=== PATIENT | female | born 1990 | race Caucasian/White ===

== ENCOUNTER → 2017-11-07 | Outpatient (CLI) | payer OTHER ==
--- NOTE | 2017-11-07 16:35 | DIAGNOSTIC IMAGING REPORT ---
L VENOUS DOPP LOWER EXT UNILAT HISTORY: 27 years-old Female MASS ON LEFT LE palpable abnormality of the left lower extremity with swelling COMPARISON: None available TECHNIQUE: Multiple real-time sonographic images of the left lower extremity deep venous structures were obtained assessing grayscale appearance, color and spectral flow FINDINGS: There is normal compressibility, flow, phasicity and augmentation of the left lower extremity deep venous structures. No focal fluid collection or definite mass seen within the left lower extremity. IMPRESSION: No sonographic evidence of deep venous thrombosis. The above report was generated using voice recognition software. It may contain grammatical, syntax or spelling errors. Electronically signed by: Dameon Lyle M.D. 11/07/2017 4:34 PM Dictated Date/Time: 11/07/2017 4:33 PM
== END | disposition home or self-care (01) ==
LOC: C.ULTR 16:07
PROVIDERS: ATTEND Physician Assistant
DX: R22.40 Localized swelling, mass and lump, unspecified lower limb (principal)

== ENCOUNTER → 2018-02-15 | Outpatient (CLI) | payer OTHER ==
[2018-02-15 14:04] LABS: BASO % 0.2 %; BASO ABS # 0.01 K/uL (0-0.2); EOS % 3.5 %; EOS ABS # 0.17 K/uL (0-0.5); HEMATOCRIT 39.1 % (37-47); LYMPH % 45.2 %; LYMPH ABS # 2.21 K/uL (1.2-3.4); MEAN CELL VOLUME 91.1 fL (80-100); MEAN CORPUSCULAR HEMOGLOBIN 30.3 pg (25-34); MEAN CORPUSCULAR HGB CONC 33.2 g/dl (32-36); MEAN PLATELET VOLUME 12.1 fL (7.4-10.4); MONO % 9.4 %; MONO ABS # 0.46 K/uL (0.11-0.59); NEUT % 41.7 %; NEUT ABS # 2.04 K/uL (1.4-6.5); PLATELET COUNT 185 K/uL (130-400); RED CELL DISTRIBUTION WIDTH CV 13.4 % (11.5-14.5); RED CELL DISTRIBUTION WIDTH SD 43.8 fL (36.4-46.3); WHITE BLOOD COUNT 4.89 K/uL (4.8-10.8)
[2018-02-15 14:21] LABS: ALBUMIN 3.3 gm/dl (3.4-5.0); ALKALINE PHOSPHATASE 52 U/L (45-117); ALT/SGPT 23 U/L (12-78); AST/SGOT 20 U/L (15-37); BLOOD UREA NITROGEN 14 mg/dl (7-18); CALCIUM 8.7 mg/dl (8.5-10.1); CARBON DIOXIDE 23 mmol/L (21-32); CREATININE 0.57 mg/dl (0.60-1.20); GLUCOSE 82 mg/dl (70-99); POTASSIUM 4.2 mmol/L (3.5-5.1); SODIUM 138 mmol/L (136-145)
[2018-02-15 15:21] LABS: HEP C IGG 13 YRS+OLDER_RFLX PRELIM POS (NEG)
[2018-02-21 18:26] LABS: HEPATITIS C RNA TMA QUAL Not detected
== END | disposition home or self-care (01) ==
LOC: C.LABPBG 08:21
PROVIDERS: ATTEND Family Medicine
DX: R53.83 Other fatigue (principal); Z87.898 Personal history of other specified conditions

== ENCOUNTER 2018-03-01 15:51 | Emergency (ER) | payer OTHER ==
[~2018-03-01] VITALS: Ht 170.2 cm; Wt 80.0 kg
[2018-03-01 15:53] VITALS: TEMP 36.4; Ht 170.2 cm; Wt 80.0 kg
[2018-03-01] MEDS ORDERED: KETOROLAC TROMETHAMINE 15 MG/ML VIAL IV STA (16:12)
[2018-03-01] MEDS ORDERED: ONDANSETRON INJ 2 MG/ML 2 ML VIAL IV STA (16:12)
[2018-03-01] MEDS ORDERED: GI COCKTAIL PO STA (16:12)
[2018-03-01] MEDS ORDERED: SODIUM CHLORIDE 0.9% 1000ML 1,000 ML IV STA (16:12)
--- NOTE | 2018-03-01 16:18 | EMERGENCY ROOM VISIT NOTE ---
History First contact with patient: 16:01 Chief Complaint: ABDOMINAL PAIN Stated Complaint: SEVERE AB PAIN History of Present Illness The patient is a 27 year old female who presents to the Emergency Room with complaints of severe abdominal pain which began when she woke up this morning. The patient reports that she woke up around 8 AM. She initially thought she had abdominal cramping, but states that the pain has worsened. She states the pain is diffuse, but mostly across her upper and mid abdomen. She has developed nausea recently but has not vomited. She feels hot and cold but denies fevers. She has been able to eat and drink normally. She has not taken any medication for pain. She describes her pain as a burning sensation and rates the discomfort a 10/10. Her pain is worsened when she is moving or walking around. She denies any history of similar symptoms. She has a history of a but denies any other history of abdominal issues or surgeries. She is currently treated for hypothyroidism and swelling in her extremities. She denies urinary symptoms, changes in bowel movements, chest pain, shortness of breath or fevers. She does take Suboxone daily but has not taken her dose today. She denies any recent drug or alcohol use. Review of Systems A complete 10 point review of systems was reviewed with the patient with pertinent positives and negatives as per history of present illness. All else were negative. Past Medical/Surgical History Medical Problems: (1) Drug addiction (2) Hypothyroidism Social History Smoking Status: Current Every Day Smoker Housing Status: lives with family Occupation Status: employed Current/Historical Medications Scheduled Furosemide (Furosemide), 1 TAB PO DAILY Omeprazole (Prilosec), 40 MG PO DAILY Thyroid ([place] Thyroid), 1 TAB PO DAILY Miscellaneous Medications Buprenorphine Hcl-Naloxone Hcl (Suboxone 2-0.5 Mg) Physical Exam Vital Signs Date Time Temp Pulse Resp B/P (MAP) Pulse Ox O2 Delivery O2 Flow Rate FiO2 03/01/18 21:05 69 18 135/87 97 03/01/18 19:49 63 18 108/62 99 Room Air 03/01/18 17:53 58 18 113/68 99 Room Air 03/01/18 15:53 36.4 70 17 147/97 99 Room Air Physical Exam VITALS: Vitals are noted on the nurse's note and reviewed by myself. Vital signs stable. GENERAL: This is a 27-year-old female, lying supine in bed, appears anxious and in pain, well-developed well-nourished. SKIN: The skin was without rashes. EARS: External auditory canals clear, tympanic membranes pearly hunt without erythema or effusion bilaterally. EYES: Pupils equal round and reactive to light and accommodation. MOUTH: Mucous membranes moist. Tonsils are not enlarged. Pharynx without erythema or exudate. HEART: Regular rate and rhythm without murmurs gallops or rubs. LUNGS: Clear to auscultation bilaterally without wheezes, rales or rhonchi. ABDOMEN: Positive bowel sounds x 4. Soft, nondistended and nontender to palpation. No palpable masses or organomegaly. Patient does report increased nausea with palpation of her abdomen. NEURO: Patient was alert and oriented to person place and time. Medical Decision & Procedures ER Provider Diagnostic Interpretation: ABDOMEN 2VIEW W/PA CHEST RTN CLINICAL HISTORY: Upper abdominal pain COMPARISON STUDY: No previous studies for comparison. FINDINGS: The erect chest reveals no free air. There is no focal pulmonary consolidation. Erect and supine views of the abdomen reveal scattered stool the colon. There are no transition zones indicate bowel obstruction. There is no pathologic bowel dilatation. Pelvic basin calcifications likely represent phleboliths. IMPRESSION: No evidence of bowel obstruction. No evidence of free air. Laboratory Results 03/01/18 19:19 Red Blood Count 4.24, Mean Corpuscular Volume 87.0, Mean Corpuscular Hemoglobin 30.2, Mean Corpuscular Hemoglobin Concent 34.7, Mean Platelet Volume 12.1, Neutrophils (%) (Auto) 66.3, Lymphocytes (%) (Auto) 24.7, Monocytes (%) (Auto) 7.1, Eosinophils (%) (Auto) 1.1, Basophils (%) (Auto) 0.4, Neutrophils # (Auto) 3.62, Lymphocytes # (Auto) 1.35, Monocytes # (Auto) 0.39, Eosinophils # (Auto) 0.06, Basophils # (Auto) 0.02 03/01/18 19:33 Test 03/01/18 00:00 03/01/18 19:19 03/01/18 19:33 Urine Color YELLOW Urine Appearance CLEAR (CLEAR) Urine pH 8.5 (4.5-7.5) Urine Specific [place] 1.020 (1.000-1.030) Urine Protein NEG (NEG) Urine Glucose (UA) NEG (NEG) Urine Ketones NEG (NEG) Urine Occult Blood NEG (NEG) Urine Nitrite NEG (NEG) Urine Bilirubin NEG (NEG) Urine Urobilinogen NEG (NEG) Urine Leukocyte Esterase TRACE (NEG) Urine WBC (Auto) 1-5 /hpf (0-5) Urine RBC (Auto) 0-4 /hpf (0-4) Urine Hyaline Casts (Auto) 1-5 /lpf (0-5) Urine Epithelial Cells (Auto) >30 /lpf (0-5) Urine Bacteria (Auto) 1+ (NEG) Urine Test NEG (NEG) White Blood Count 5.46 K/uL (4.8-10.8) Red Blood Count 4.24 M/uL (4.2-5.4) Hemoglobin 12.8 g/dL (12.0-16.0) Hematocrit 36.9 % (37-47) Mean Corpuscular Volume 87.0 fL (80-100) Mean Corpuscular Hemoglobin 30.2 pg (25-34) Mean Corpuscular Hemoglobin Concent 34.7 g/dl (32-36) Platelet Count 184 K/uL (130-400) Mean Platelet Volume 12.1 fL (7.4-10.4) Neutrophils (%) (Auto) 66.3 % Lymphocytes (%) (Auto) 24.7 % Monocytes (%) (Auto) 7.1 % Eosinophils (%) (Auto) 1.1 % Basophils (%) (Auto) 0.4 % Neutrophils # (Auto) 3.62 K/uL (1.4-6.5) Lymphocytes # (Auto) 1.35 K/uL (1.2-3.4) Monocytes # (Auto) 0.39 K/uL (0.11-0.59) Eosinophils # (Auto) 0.06 K/uL (0-0.5) Basophils # (Auto) 0.02 K/uL (0-0.2) RDW Standard Deviation 41.3 fL (36.4-46.3) RDW Coefficient of Variation 12.9 % (11.5-14.5) Immature Granulocyte % (Auto) 0.4 % Immature Granulocyte # (Auto) 0.02 K/uL (0.00-0.02) Anion Gap 5.0 mmol/L (3-11) Est Creatinine Clear Calc Drug Dose 137.3 ml/min Estimated GFR () 139.6 Estimated GFR (Non- 120.5 BUN/Creatinine Ratio 15.4 (10-20) Calcium Level 8.4 mg/dl (8.5-10.1) Total Bilirubin 0.2 mg/dl (0.2-1) Direct Bilirubin 0.1 mg/dl (0-0.2) Aspartate Amino Transf (AST/SGOT) 24 U/L (15-37) Alanine Aminotransferase (ALT/SGPT) 33 U/L (12-78) Alkaline Phosphatase 59 U/L (45-117) Total Protein 7.3 gm/dl (6.4-8.2) Albumin 3.3 gm/dl (3.4-5.0) Lipase 128 U/L (73-393) Medications Administered Medications (Trade) Dose Ordered Sig/Catia Route Start Time Stop Time Status Last Admin Dose Admin Sodium Chloride 1,000 ml @ 999 mls/hr Q1H1M STAT IV 03/01/18 16:12 03/01/18 17:12 DC 03/01/18 17:44 999 MLS/HR Ondansetron HCl (Zofran Inj) 4 mg NOW STAT IV 03/01/18 16:12 03/01/18 16:15 DC 03/01/18 17:44 4 MG Ketorolac Tromethamine (Toradol Inj) 15 mg NOW STAT IV 03/01/18 16:12 03/01/18 16:15 DC 03/01/18 17:44 15 MG Lidocaine HCl (Viscous Lidocaine 2% Soln) 20 ml STK-MED ONCE .ROUTE 03/01/18 17:34 03/01/18 17:35 DC 03/01/18 17:44 20 ML Al Hydroxide/Mg Hydroxide (Maalox Susp) 30 ml STK-MED ONCE .ROUTE 03/01/18 17:34 03/01/18 17:35 DC 03/01/18 17:44 30 ML Ranitidine HCl (zANTac TAB) 150 mg ONE STAT PO 03/01/18 20:54 03/01/18 20:55 DC 03/01/18 21:03 150 MG Medical Decision Differential diagnosis includes gastritis, pancreatitis, cholecystitis, gastroenteritis, colitis, appendicitis, kidney stone, UTI, among others. The patient is a 27-year-old female who presents today complaining of abdominal pain. Patient's exam is unremarkable and there is no abdominal tenderness on exam. Labs revealed no leukocytosis, anemia or concerning electrolyte abnormalities. LFTs and kidney function within normal limits. Urinalysis was not suggestive of infection. Urine was negative. Lipase was not elevated. Abdominal series was performed and was unremarkable. Patient was treated as above with some improvement of her pain. I discussed options of care with the patient including performing further testing versus discharge and close follow-up. The patient will be discharged at this time. She will follow- up with her primary care provider for further evaluation. She will be started on a PPI. Based on the patient's presentation and work up, I feel the patient is stable for outpatient treatment. The patient was educated to return to the emergency department for any worsening of their current condition or new/concerning symptoms. She will follow up with her PCP. Medication Reconcilliation Current Medication List: was personally reviewed by me Blood Pressure Screening Patient's blood pressure: Normal blood pressure Impression Primary Impression: Generalized abdominal pain Departure Information Dispostion Home / Self-Care Condition GOOD Prescriptions Omeprazole (PRILOSEC) 40 Mg Cap 40 MG PO DAILY for 14 Days, #14 CAP Prov: Dinorah Michelle ., LISS 03/01/18 Referrals Janice Fields DO (PCP) Patient Instructions [facility] Additional Instructions You have been treated in the Emergency Department for your Abdominal Pain. Laboratory results and imaging studies have ruled out any emergent causes for your abdominal pain which would warrant admission or surgery. Omeprazole as prescribed. You may take Zantac rzwo-hun-wlhcnwn, 150 mg nightly for the next 1 week. For pain control, you can use the following hjcz-arz-[id number] medicines (if >12 yo): - Regular strength (325mg/tab) Tylenol (acetaminophen) 2 tabs every 4-6 hours as needed. Do not exceed 12 tablets in a 24 hour period. Avoid taking more than 4 grams (4000 mg) of Tylenol per day. This includes any other sources of acetaminophen you may take on a regular basis. Drink plenty of water and stay well hydrated. As with any trip to the Emergency Department, you should follow-up with your Primary Care Provider from today's visit. Keep a very bland diet, including breaths, toast, crackers and other bland foods. Make sure to drink plenty of fluids. Return to the emergency department if your symptoms persist despite treatment plan outlined above or if the following symptoms occur: Worsening pain, pain that localizes to one location, vomiting, fevers or other new/concerning symptoms.
[2018-03-01] MEDS ORDERED: LSX20 PO (16:54)
[2018-03-01] MEDS ORDERED: THYR90TA PO (16:54)
[2018-03-01] MEDS ORDERED: BUPR1SUB22 (16:54)
[2018-03-01] MEDS ORDERED: [UNRECOGNIZED DRUG - CODE] (16:54)
[2018-03-01] MEDS ORDERED: LIDOCAINE HCL 2% VISC SOLN 20 ML UDC ONE (17:34)
[2018-03-01] MEDS ORDERED: ALUMINUM/MAGNESIUM SUSP 30 ML UDC ONE (17:34)
--- NOTE | 2018-03-01 18:32 | DIAGNOSTIC IMAGING REPORT ---
ABDOMEN 2VIEW W/PA CHEST RTN CLINICAL HISTORY: Upper abdominal pain COMPARISON STUDY: No previous studies for comparison. FINDINGS: The erect chest reveals no free air. There is no focal pulmonary consolidation. Erect and supine views of the abdomen reveal scattered stool the colon. There are no transition zones indicate bowel obstruction. There is no pathologic bowel dilatation. Pelvic basin calcifications likely represent phleboliths. IMPRESSION: No evidence of bowel obstruction. No evidence of free air. Electronically signed by: Stephon Aleman M.D. 03/01/2018 6:30 PM Dictated Date/Time: 03/01/2018 6:29 PM
[2018-03-01 20:17] LABS: BASO % 0.4 %; BASO ABS # 0.02 K/uL (0-0.2); EOS % 1.1 %; EOS ABS # 0.06 K/uL (0-0.5); HEMATOCRIT 36.9 % (37-47); HEMOGLOBIN 12.8 g/dL (12.0-16.0); IG# 0.02 K/uL (0.00-0.02); LYMPH % 24.7 %; LYMPH ABS # 1.35 K/uL (1.2-3.4); MEAN CORPUSCULAR HEMOGLOBIN 30.2 pg (25-34); MEAN CORPUSCULAR HGB CONC 34.7 g/dl (32-36); MEAN PLATELET VOLUME 12.1 fL (7.4-10.4); MONO % 7.1 %; MONO ABS # 0.39 K/uL (0.11-0.59); NEUT % 66.3 %; NEUT ABS # 3.62 K/uL (1.4-6.5); PLATELET COUNT 184 K/uL (130-400); RED CELL DISTRIBUTION WIDTH CV 12.9 % (11.5-14.5); RED CELL DISTRIBUTION WIDTH SD 41.3 fL (36.4-46.3); WHITE BLOOD COUNT 5.46 K/uL (4.8-10.8)
[2018-03-01 20:25] LABS: ALBUMIN 3.3 gm/dl (3.4-5.0); CALCIUM 8.4 mg/dl (8.5-10.1); CREATININE 0.67 mg/dl (0.60-1.20); POTASSIUM 3.9 mmol/L (3.5-5.1); TOTAL PROTEIN 7.3 gm/dl (6.4-8.2)
[2018-03-01] MEDS ORDERED: RANITIDINE HCL 150 MG TAB PO STA (20:54)
[2018-03-01] MEDS ORDERED: OMEP40CA41 PO (20:56)
[2018-03-01 21:05] VITALS: BP 135/87; PULSE 69; O2SAT 97
== END 2018-03-01 21:05 | disposition home or self-care (01) ==
LOC: C.EDB 15:53 → C.EDC 21:05
DX: R10.84 Generalized abdominal pain (principal); R11.0 Nausea; E03.9 Hypothyroidism, unspecified; F17.200 Nicotine dependence, unspecified, uncomplicated; Z79.891 Long term (current) use of opiate analgesic; Z79.899 Other long term (current) drug therapy

== ENCOUNTER 2019-03-19 21:11 | Inpatient (IN) ==
--- NOTE | 2019-03-19 22:48 | XRay Report ---
XR chest 1V portable CLINICAL HISTORY: Sepsis COMPARISON STUDY: 03/01/2018 FINDINGS: The cardiac and mediastinal contours are normal. There is no evidence of focal pulmonary co nsolidation. There is no evidence of failure. No pleural effusions are visualized.[ IMPRESSION: No active disease in the chest. Electronically signed by: Stephon Aleman M.D. 03/19/2019 10:46 PM
--- NOTE | 2019-03-19 22:48 | XRay Report ---
XR foot RT min 3V routine CLINICAL HISTORY: Right foot pain COMPARISON: None. DISCUSSION: No fractures or dislocations are visualized. There is dorsal soft tissue swelling. IMPRESSION: 1. Soft tissue swelling. 2. No fractures identified. No evidence of erosive disease Electronically signed by: Stephon Aleman M.D. 03/19/2019 10:46 PM
--- NOTE | 2019-03-19 22:48 | XRay Report ---
XR foot LT min 3V routine CLINICAL HISTORY: Left foot pain COMPARISON: None. DISCUSSION: No fractures or dislocations are visualized. There are no erosive or destructive changes. There is soft tissue swelling. IMPRESSION: 1. Soft tissue edema. No fractures identified. No evidence of erosive disease. Electronically signed by: Stephon Aleman M.D. 03/19/2019 10:47 PM
[2019-03-19 23:25] LABS: Basophils # (auto) 0.01 K/uL (0-0.2); Basophils % (auto) 0.1 %; Eosinophils # (auto) 0.16 K/uL (0-0.5); Hemoglobin 10.7 g/dL (12.0-16.0); Immature Granulocytes # (auto) 0.04 K/uL (0.00-0.02); Immature Granulocytes % (auto) 0.5 %; Lymphocytes # (auto) 1.65 K/uL (1.2-3.4); Lymphocytes % (auto) 20.3 %; Mean Corpuscular Hgb Conc 34.5 g/dL (32-36); Mean Corpuscular Volume 90.9 fL (80-100); Mean Platelet Volume 10.3 fL (7.4-10.4); Monocytes # (auto) 0.68 K/uL (0.11-0.59); Monocytes % (auto) 8.4 %; Neutrophils % (auto) 68.7 %; Platelet Count 214 K/uL (130-400); RDW Coefficient of Variation 13.6 % (11.5-14.5); Red Blood Count 3.41 M/uL (4.2-5.4); White Blood Count 8.14 K/uL (4.8-10.8)
[2019-03-19 23:36] LABS: INR 0.9 (0.9-1.1); Partial Thromboplastin Time 26.2 Seconds (21.0-31.0); Prothrombin Time 9.7 Seconds (9.0-12.0)
[2019-03-19] MEDS ORDERED: LORazepam 2 MG/ML VIAL (IM USE) IM STA (23:40)
[2019-03-19 23:41] LABS: Calcium 8.5 mg/dl (8.5-10.1); Chloride 106 mmol/L (98-107); Potassium 3.7 mmol/L (3.5-5.1); Sodium 140 mmol/L (136-145)
[2019-03-19] MEDS ORDERED: KETAMINE HCL INJ 50 MG/ML 10 ML VIAL IV STA (23:42)
[2019-03-19] MEDS ORDERED: LORazepam 2 MG/4 ML VIAL IV STA (23:43)
[2019-03-19 23:44] LABS: Alanine Aminotransferase 15 U/L (12-78); Albumin Level 2.8 gm/dl (3.4-5.0); Aspartate Aminotransferase 19 U/L (15-37); BUN Creatinine Ratio 21.6 (10-20); Blood Urea Nitrogen 13 mg/dl (7-18); Carbon Dioxide 28 mmol/L (21-32); Creatinine Clr Calc Pharmacy 158.8 ml/min; Est GFR (African American) 143.8; Glucose 83 mg/dl (70-99)
[2019-03-19 23:50] LABS: Albumin Globulin Ratio 0.7 (0.9-2); Alkaline Phosphatase 72 U/L (45-117); Bilirubin,Total 0.4 mg/dl (0.2-1); Creatine Kinase 385 U/L (26-192); Globulin 4.1 gm/dl (2.5-4.0); Total Protein 6.9 gm/dl (6.4-8.2)
[2019-03-19] MEDS ORDERED: AZTREONAM 2,000 MG in DEXTROSE 5% 100 ML IV STA (23:54)
[2019-03-20] MEDS ORDERED: DiphenhydrAMINE HCL 50 MG/ML VIAL IV STA (00:07)
[2019-03-20] MEDS ORDERED: DEXTROSE 5% IV ONE (00:15)
[2019-03-20] MEDS ORDERED: AMPHOTERICIN B IV ONE (00:15)
--- NOTE | 2019-03-20 00:39 | History & Physical Report ---
Date of Service March 20, 2019 Assessment & Plan (1) Fungemia: Terrance is a 28 year old female who is currently 26 weeks , with a past medical history including an MRSA infection of the foot, IV drug abuse, psychiatric disorders and hypothyroidism who presented to the emergency de partment due to positive blood cultures. ED course: 2 g IV aztreonam, 25 mg IV amphotericin B Fungemia/Bacteremia -admit to med/surg -hemodynamically stable, afebrile, no leukocytosis -Per review of the chart, patient was seen in the ER on 03/13 for leg cellulitis and discharged with clindamycin. She had blood cultures drawn at that time, which returned positive for yeast and gram-negative bacilli. Of note, her wound culture from her right foot grew MRSA -This was discussed with Dr. Finn with infectious diseases who recommended treatment for her bacteremia/fungemia -continue aztreonam 2g IV q8h and amphotericin B 25mg IV q24h -repeat blood cultures drawn in ED -unsure of cause of bacteremia/fungemia as no focal signs of infection apart from leg cellulitis which grew MRSA -> UA clean, CXR w/out evidence of infection, no lines present, pt denies recent IV drug use Bilateral lower extremity edema/Cellulitis w/MRSA positive wound -awaiting results of b/l lower extremity dopplers, however they were negative on 03/13 -Bilateral foot x-ray show soft tissue edema, with no evidence of erosive disease -continue p.o clindamycin for MRSA +ve R foot ulcer - this was started on 03/13 -26 weeks -follows with Dr. 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 History of IV drug abuse -continue home buprenorphine Mood disorder/bipolar disease/depression/anxiety -Patient has been off all of her psych medications due to -Consider inpatient psychiatry consult versus outpatient close psychiatry follow-up CODE STATUS: Full DVT Prophylaxis: Lovenox 40mg SQ daily Disposition: admit to med/surg (2) Bacteremia: (3) : (4) Bilateral edema of lower extremity: (5) Ollie's thyroiditis: (6) History of intravenous drug abuse: History of Present Illness Chief Complaint: Bacteremia, Fungemia Primary Care Provider: Janice Fields DO Terrance is a 28 year old female who is currently 26 weeks , with a past medical history including an MRSA infection of the foot, IV drug abuse, psychiatric disorders and hypothyroidism who presented to the emergency department due to positive blood cultures. Her history is largely supplied by her mother, who states that she had noticed a right foot wound last week. She was seen at [place] urgent [facility] several times for this. She was initially treated with Keflex for a presumed cellulitis. Due to the fact that this was not improving, she presented to [facility] on 03/13 for the same. She was placed on clindamycin to cover a MRSA infection. Her wound culture did grow MRSA. Blood cultures were drawn at this time, and 1/2 grew dulce maria and gram negative bacilli. She was subsequently called back to the hospital for IV treatment. Terrance denies fever, chills, nausea, vomiting, abdominal pain, cough, or urinary symptoms. She states that other than her b/l legs hurting, she has been well. She does endorse a right palmar laceration that occurred earlier today. She states she accidentally cut herself with a knife, and then bandaged the area. Terrance has a history of IV drug abuse, but states that she has not used any drugs recently. Her mother notes she recently had a negative drug screen. Terrance states she is currently on buprenorphine. Terrance's mother expresses concerns regarding her mental health. She states she was on several medications for her mood, however these were all discontinued when she became , and her mood has subsequently become a problem. She reports Terrance is not sleeping at nights, and has been exhibiting mood swings. PMHx: Hypothyroidism, mood disorder, history of IV drug abuse PSHx: Prior section Meds: Aspirin, clindamycin, Lasix, hydroxyprogesterone caproate, levothyroxine Allergies: NKDA SHx: Smokes <1/2 pack per day. No alcohol or recent recreational drug use. Allergies Allergy/AdvReac Type Severity Reaction Status Date / Time No Known Allergies Allergy Unverified 03/19/19 23:37 Home Medications Home Medications Medication Instructions Recorded Confirmed Type furosemide 20 mg tablet 20 mg PO DAILY #90 tab 01/16/19 03/19/19 Rx buprenorphine HCl 8 mg SUBLINGUAL DIRECTED 03/14/19 03/19/19 History clindamycin HCl 450 mg PO TID 7 Days #63 cap 03/14/19 03/19/19 Rx hydroxyprogesterone caproate 250 mg IM WK 03/14/19 03/19/19 History levothyroxine 150 mcg tablet 150 mcg PO DAILY #60 tab 03/18/19 03/19/19 History Past Med/Surg History Medical History Ollie's thyroiditis (Acute) Hypothyroidism (acquired) (Acute) Encounter for routine gynecological examination with Papanicolaou smear of cervix Surgical History Previous section Family History Brother Anxiety Family history of depression Drug abuse Gall bladder disease Grandmother No problems noted. Grandmother (Paternal) Diabetes Hyperthyroidism Grandmother (Paternal) Myocardial infarction Grandfather (Maternal) Myocardial infarction Social History Preferred Language: Georgian Communication Ability: Impaired Communication Ability Comment: pt appears intoxicated/medicated. slurring words,cant keep eyes open,swayin Sort Worker Required: No Beliefs That Will Affect Care: None marital status: Single Current Living Situation: Homeless current occupational status: employed current occupation: [employer] Other Information That Helps Us Care for You: No Feels Safe at Home: Yes Smoking Status: Current every day smoker Tobacco Type: cigarettes ; Cigarettes Per Day: 1 pack ; Tobacco Cessation Education Requested by Patient: No Hx Alcohol Use: No Hx Substance Use: Yes substance use type: former substance user and IV drugs Last Used Substance: Unknown Childhood Exposure to Second-Hand Smoke: No Dental Care, Regularly: Yes Physical Activity Frequency: 1-2 Times per Week Review of Systems Constitutional: + insomnia; no fever, no chills, no fatigue and no anorexia Respiratory: no cough, no dyspnea and no wheezing Cardiovascular: no chest pain, no palpitations, no syncope, no edema and no calf pain Gastrointestinal: no abdominal pain, no nausea, no vomiting and no change in bowel habits Genitourinary: no dysuria, no urinary frequency and no urinary urgency Musculoskeletal: no back pain Integumentary: + lesions (on base of right foot) laceration to right palm Psychiatric: + behavioral changes and + abnormal sleep pattern Physical Exam Constitutional: WD/WN, vitals as above + well hydrated and comfortable periods of slurred speech and not responding to questions, then transitions to cooperative, with normal speech periodically upset and tearful Eyes: PERRL, conjunctivae normal, anicteric sclerae ENMT: external ear and nose normal, oropharynx normal Neck: right IJ in place Respiratory: normal respiratory effort, lungs clear to auscultation Cardiovascular: Rate/Rhythm: regular rate and regular rhythm Extremities: + calf tenderness (b/l) Gastrointestinal (Abdomen): gravid, no tenderness Skin: multiple bruises on b/l arms b/l legs with erythema, tenderness and swelling. Ulcer noted to lateral aspect of right palm, with surrounding skin having peeled off superficially right palm with 2cm laceration Neurologic: moves all extremities and awake Results & Data Vital Signs (Past 12 Hours) Vital Signs Temp Pulse Resp BP Pulse Ox 03/19/19 21:30 36.7 C 108 H 18 126/76 97 Supervising Physician Co-Signing Physician Notes Patient was seen and examined by me personally. I reviewed the chart, the orders and discussed the case in detail with Dr. Misbah Espinoza MD. I read this H&P and agree with its contents to entirety. PG Care Time/CCT Total # of Minutes Spent Total Time Spent with Patient: Total time spent is greater than 50% in coordination of care (as documented) at patient's floor/unit and/or counseling patient: Resident Activity Tracking Resident Involvement: Resident Care Provided Care Provided: Adult Hospital Medicine (1) Weeks of gestation: 28 weeks Qualified Code(s): Z3A.28 - 28 weeks gestation of
--- NOTE | 2019-03-20 00:47 | Emergency Department Note ---
Entered by Cat Faria acting as a scribe for Ashok Banks MD History of Present Illness General Chief complaint: Infection Stated complaint: BLOOD INFECTION Time Seen by Provider: 03/19/19 21:59 Source: patient Limitations: no limitations History of Present Illness Onset (ago): day(s) 2 Location: lower extremity (blood infection) Pain Consistency: + other (persistent) Maximum Pain Intensity: 7 Quality: + other (blood infection) Relieved By: + none Associated symptoms: + other (bilateral foot pain) The patient is a 28 year old female who presents to the Emergency Room with complaints of persistent blood infection that began two weeks ago. She reports that the symptoms started as a "feeling like a splinter over a calloused area," but the pain and swelling progressed. The patient complains of bilateral foot swelling, erythema, and pain, describing the pain to be "throbbing, aching, and jabbing." She notes that she has been taking Clindamycin for 2-3 days as prescribed. The patient notes that no treatments have provided any relief. The patient notes that she is 27 weeks into her second . Home Medications Home Medications Medication Instructions Recorded Confirmed Type furosemide 20 mg tablet 20 mg PO DAILY #90 tab 01/16/19 03/19/19 Rx buprenorphine HCl 8 mg SUBLINGUAL DIRECTED 03/14/19 03/19/19 History hydroxyprogesterone caproate 250 mg IM WK 03/14/19 03/19/19 History levothyroxine 150 mcg tablet 150 mcg PO DAILY #60 tab 03/18/19 03/19/19 History Allergies Allergy/AdvReac Type Severity Reaction Status Date / Time No Known Allergies Allergy Unverified 03/19/19 23:37 Past Med/Surg History Medical History Hepatitis C antibody positive in blood (Chronic) Ollie's thyroiditis (Acute) Hypothyroidism (acquired) (Acute) Encounter for routine gynecological examination with Papanicolaou smear of cervix Surgical History Previous section Family History Brother Anxiety Family history of depression Drug abuse Gall bladder disease Grandmother No problems noted. 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 and A total of 10 systems reviewed and were otherwise negative Physical Exam Vital Signs Vital Signs - 24 hr 03/19/19 21:30 Temperature 36.7 C Temperature Source Oral Sepsis Recent Fever Within 48 Hours No Sepsis New/Unexplained Change in Mental Status No Sepsis Action Taken by Nursing No Action Required Pulse Rate 108 H Respiratory Rate 18 Respiratory Effort / Characteristics Non-Labored Spontaneous Respiratory Depth Normal Respiratory Pattern Regular Blood Pressure 126/76 Blood Pressure Mean 92 Blood Pressure Position Sitting Pulse Oximetry 97 Oxygen Delivery Method Room Air GENERAL: Awake, alert, well-appearing, in no acute distress HENT: Normocephalic, atraumatic. Oropharynx unremarkable. EYES: Normal conjunctiva. Sclera non-icteric. NECK: Supple. No nuchal rigidity. FROM. No JVD. RESPIRATORY: Clear to auscultation. CARDIAC: Regular rate, normal rhythm. Extremities warm and well perfused. Pulses equal. ABDOMEN: Soft, non-distended. No tenderness to palpation. No rebound or guarding. No masses. RECTAL: Deferred. MUSCULOSKELETAL: Chest examination reveals no tenderness. The back is symmetrical on inspection without obvious abnormality. There is no CVA tenderness to palpation. No joint edema. LOWER EXTREMITIES: Calves are equal size bilaterally and non-tender. Areas of open wounds on her feet. Appears to be cellulitis bilaterally in the legs. NEURO: Normal sensorium. No sensory or motor deficits noted. SKIN: No rash or jaundice noted. Bruises up and down her arms. Procedures Free Text Procedures Central Venous Catheter Indication: Access Catheter type: Arrow Triple Lumen Location: Right IJ Verbal consent was obtained after the risks and benefits were explained, inclu ding but not limited to pneumothorax, hemothorax, vessel injury, bleeding, scarring, infection, pain, and bone/joint/nerve damage. At this time, the risks of the procedure are less than the risks of NOT performing the procedure. A time out was taken and the correct patient and site identified. The patient was placed in the supine position and the skin was prepped in the standard fashion with chlorhexidine and full sterile drapes applied. The proper landmarks were identified with ultrasound, anesthetized with 1% lidocaine without epinephrine, and the needle was inserted through the skin in the standard fashion. The needle was carefully advanced into blood vessel lumen under ultrasound guidance. The guidewire was placed uneventfully. The vessel is dilated and the catheter was placed. It was sutured into position. There was good blood return from all ports. I asked several times if the patient wanted to stop the procedure, but she wanted to continue until the line was in place. Post procedure x-ray was normal. Course 2206: The patient was evaluated in room B09. A complete history and physical exam was performed. 2315: I performed the procedure. I asked several times if the patient wanted to stop the procedure, but she wanted to continue until the line was in place. 2340: The patient refused the X-ray of her chest and she threatened to sign out AMA. 2349: I spoke with Dr. Cruz, [facility] hospitalist, about the patients case. He will further evaluate the patient. Administered Medications Discontinued Medications Acetaminophen (Tylenol) 650 mg PO Q4H PRN PRN Reason: pain/fever Stop: 04/19/19 02:39 Last Admin: 03/20/19 08:43 Dose: 650 mg Documented by: [id number] Buprenorphine HCl (Subutex) 8 mg SL BID MALACHI Stop: 04/19/19 08:59 Last Admin: 03/20/19 08:55 Dose: Not Given Documented by: [id number] Buprenorphine HCl (Subutex) Confirm Administered Dose 8 mg .ROUTE .STK-MED ONE Stop: 03/20/19 08:22 Last Admin: 03/20/19 08:43 Dose: 8 mg Documented by: [id number] Buprenorphine HCl (Subutex) Confirm Administered Dose 8 mg .ROUTE .STK-MED ONE Stop: 03/20/19 08:32 Last Admin: 03/20/19 08:55 Dose: Not Given Documented by: [id number] Clindamycin HCl (Cleocin) 450 mg PO TID MALACHI Stop: 03/30/19 08:59 Last Admin: 03/20/19 15:52 Dose: 450 mg Documented by: [id number] Admin: 03/20/19 11:21 Dose: Not Given Documented by: [id number] Diphenhydramine HCl (Benadryl) 50 mg IV NOW STA Stop: 03/20/19 00:08 Last Admin: 03/20/19 02:07 Dose: Not Given Documented by: [id number] Enoxaparin Sodium (Lovenox) 40 mg SQ QAM MALACHI Stop: 04/19/19 08:59 Last Admin: 03/20/19 08:55 Dose: Not Given Documented by: [id number] Haloperidol Lactate (Haldol) 2 mg IM NOW STA Stop: 03/20/19 08:24 Last Admin: 03/20/19 09:55 Dose: Not Given Documented by: [id number] Lorazepam (Ativan) 2 mg in 4 mls @ 4 mls/min IV NOW STA Stop: 03/19/19 23:44 Last Admin: 03/20/19 02:07 Dose: Not Given Documented by: [id number] Aztreonam 2,000 mg/ Dextrose 110 mls @ 110 mls/hr IV NOW STA Stop: 03/20/19 00:53 Last Infusion: 03/20/19 03:19 Dose: 0 mls/hr Documented by: [id number] Admin: 03/20/19 01:17 Dose: 110 mls/hr Documented by: [id number] Amphotericin B 25 mg/ Dextrose 500 mls @ 82 mls/hr IV NOW ONE Stop: 03/20/19 06:20 Last Infusion: 03/20/19 08:13 Dose: 0 mls/hr Documented by: [id number] Admin: 03/20/19 02:07 Dose: 82 mls/hr Documented by: [id number] Aztreonam 2,000 mg/ Dextrose 110 mls @ 100 mls/hr IV Q8H MALACHI Stop: 04/03/19 09:59 Last Infusion: 03/20/19 20:20 Dose: 0 mls/hr Documented by: [id number] Admin: 03/20/19 18:37 Dose: 100 mls/hr Documented by: [id number] Admin: 03/20/19 11:22 Dose: Not Given Documented by: [id number] Lorazepam (Ativan) 2 mg in 4 mls @ 4 mls/min IV Q4H PRN PRN Reason: Agitation Stop: 04/19/19 09:08 Last Admin: 03/20/19 20:00 Dose: 4 mls/min Documented by: [id number] Ketamine HCl (Ketalar Steri-Vial) 45 mg IV NOW STA Stop: 03/19/19 23:43 Last Admin: 03/20/19 02:06 Dose: Not Given Documented by: [id number] Levothyroxine Sodium (Synthroid) 150 mcg PO DAILYBB MALACHI Stop: 04/19/19 06:29 Last Admin: 03/20/19 05:25 Dose: 150 mcg Documented by: [id number] Lidocaine HCl (Buffered Lidocaine 1%) Confirm Administered Dose 20 ml .ROUTE .STK-MED ONE Stop: 03/20/19 01:40 Last Admin: 03/20/19 02:07 Dose: 20 ml Documented by: [id number] Lorazepam (Ativan) 2 mg IM NOW STA Stop: 03/19/19 23:41 Last Admin: 03/20/19 02:06 Dose: Not Given Documented by: [id number] Ondansetron HCl (Zofran Odt) Confirm Administered Dose 4 mg .ROUTE .STK-MED ONE Stop: 03/20/19 08:43 Last Admin: 03/20/19 08:44 Dose: 4 mg Documented by: [id number] Medical Decision Making Differential Diagnosis Etiologies such as cellulitis, abscess, osteomyelitis, MRSA infection, DVT, necrotizing fasciitis, dermatitis, drug eruption, as well as others were entertained. Medical Records Attestation: I reviewed the patient's medical records. Home Medications Current Medication List: was personally reviewed by me Laboratory Data Attestation: I reviewed the patient's lab results. Result diagrams: 03/20/19 17:07 03/20/19 17:07 Lab Results 03/19/19 03/19/19 03/19/19 Range/Units 23:00 23:00 23:00 WBC 8.14 (4.8-10.8) K/uL RBC 3.41 L (4.2-5.4) M/uL Hgb 10.7 L (12.0-16.0) g/dL Hct 31.0 L (37-47) % MCV 90.9 (80-100) fL MCH 31.4 (25-34) pg MCHC 34.5 (32-36) g/dL RDW Std Deviation 45.0 (36.4-46.3) fL RDW Coeff of Star 13.6 (11.5-14.5) % Plt Count 214 (130-400) K/uL MPV 10.3 (7.4-10.4) fL Immature Gran % (Auto) 0.5 % Neut % (Auto) 68.7 % Lymph % (Auto) 20.3 % Hood % (Auto) 8.4 % Eos % (Auto) 2.0 % Baso % (Auto) 0.1 % Immature Gran # (Auto) 0.04 H (0.00-0.02) K/uL Neut # (Auto) 5.60 (1.4-6.5) K/uL Lymph # (Auto) 1.65 (1.2-3.4) K/uL Hood # (Auto) 0.68 H (0.11-0.59) K/uL Eos # (Auto) 0.16 (0-0.5) K/uL Baso # (Auto) 0.01 (0-0.2) K/uL PT 9.7 (9.0-12.0) Seconds INR 0.9 (0.9-1.1) APTT 26.2 (21.0-31.0) Seconds PTT Ratio 1.0 Sodium 140 (136-145) mmol/L Potassium 3.7 (3.5-5.1) mmol/L Chloride 106 (98-107) mmol/L Carbon Dioxide 28 (21-32) mmol/L Anion Gap 6.0 (3-11) BUN 13 (7-18) mg/dl Creatinine 0.60 (0.6-1.2) mg/dl Est Cr Clr Drug Dosing 158.8 ml/min Est GFR ( Amer) 143.8 Est GFR (Non-Af Amer) 124.0 BUN/Creatinine Ratio 21.6 H (10-20) Glucose 83 (70-99) mg/dl Lactate (0.4-2.0) mmol/L Calcium 8.5 (8.5-10.1) mg/dl Total Bilirubin 0.4 (0.2-1) mg/dl AST 19 (15-37) U/L ALT 15 (12-78) U/L Alkaline Phosphatase 72 (45-117) U/L Total Creatine Kinase 385 H (26-192) U/L CK-MB (CK-2) 11.9 H (0.5-3.6) ng/ml CK/CKMB % Calc 3.1 H (0-3.0) Troponin I < 0.015 (0-0.045) ng/ml Total Protein 6.9 (6.4-8.2) gm/dl Albumin 2.8 L (3.4-5.0) gm/dl Globulin 4.1 H (2.5-4.0) gm/dl Albumin/Globulin Ratio 0.7 L (0.9-2) Procalcitonin (0-0.5) ng/ml 03/19/19 03/20/19 Range/Units 23:00 00:16 WBC (4.8-10.8) K/uL RBC (4.2-5.4) M/uL Hgb (12.0-16.0) g/dL Hct (37-47) % MCV (80-100) fL MCH (25-34) pg MCHC (32-36) g/dL RDW Std Deviation (36.4-46.3) fL RDW Coeff of Star (11.5-14.5) % Plt Count (130-400) K/uL MPV (7.4-10.4) fL Immature Gran % (Auto) % Neut % (Auto) % Lymph % (Auto) % Hood % (Auto) % Eos % (Auto) % Baso % (Auto) % Immature Gran # (Auto) (0.00-0.02) K/uL Neut # (Auto) (1.4-6.5) K/uL Lymph # (Auto) (1.2-3.4) K/uL Hood # (Auto) (0.11-0.59) K/uL Eos # (Auto) (0-0.5) K/uL Baso # (Auto) (0-0.2) K/uL PT (9.0-12.0) Seconds INR (0.9-1.1) APTT (21.0-31.0) Seconds PTT Ratio Sodium (136-145) mmol/L Potassium (3.5-5.1) mmol/L Chloride (98-107) mmol/L Carbon Dioxide (21-32) mmol/L Anion Gap (3-11) BUN (7-18) mg/dl Creatinine (0.6-1.2) mg/dl Est Cr Clr Drug Dosing ml/min Est GFR ( Amer) Est GFR (Non-Af Amer) BUN/Creatinine Ratio (10-20) Glucose (70-99) mg/dl Lactate 0.7 (0.4-2.0) mmol/L Calcium (8.5-10.1) mg/dl Total Bilirubin (0.2-1) mg/dl AST (15-37) U/L ALT (12-78) U/L Alkaline Phosphatase (45-117) U/L Total Creatine Kinase (26-192) U/L CK-MB (CK-2) (0.5-3.6) ng/ml CK/CKMB % Calc (0-3.0) Troponin I (0-0.045) ng/ml Total Protein (6.4-8.2) gm/dl Albumin (3.4-5.0) gm/dl Globulin (2.5-4.0) gm/dl Albumin/Globulin Ratio (0.9-2) Procalcitonin < 0.05 (0-0.5) ng/ml Imaging Data Radiologist's Impression: Radiology results as stated below per my review and the radiologist's interpretation: XR foot RT min 3V routine CLINICAL HISTORY: Right foot pain COMPARISON: None. DISCUSSION: No fractures or dislocations are visualized. There is dorsal soft tissue swelling. IMPRESSION: 1. Soft tissue swelling. 2. No fractures identified. No evidence of erosive disease Electronically signed by: Stepohn Aleman M.D. 03/19/2019 10:46 PM XR foot LT min 3V routine CLINICAL HISTORY: Left foot pain COMPARISON: None. DISCUSSION: No fractures or dislocations are visualized. There are no erosive or destructive changes. There is soft tissue swelling. IMPRESSION: 1. Soft tissue edema. No fractures identified. No evidence of erosive disease. Electronically signed by: Stephon Aleman M.D. 03/19/2019 10:47 PM XR chest 1V portable CLINICAL HISTORY: Sepsis COMPARISON STUDY: 03/01/2018 FINDINGS: The cardiac and mediastinal contours are normal. There is no evidence of focal pulmonary consolidation. There is no evidence of failure. No pleural effusions are visualized.[ IMPRESSION: No active disease in the chest. Electronically signed by: Stephon Aleman M.D. 03/19/2019 10:46 PM ECG Data Attestation: I personally reviewed and interpreted this ECG as follows: Blood Pressure Blood Pressure Findings: Normal blood pressure Blood Pressure Disposition: did not require urgent referral MDM Narrative This is a 28-year-old female who presents emergency department after being called in for growing yeast in her blood. The patient is and appears to have cellulitis on her lower extremities. I will note that this patient did not respond to multiple phone calls this week and there was great concern that the patient was not taking care of herself. Patient is brought in by her m other. Due to inability to get IV access I strongly recommended a central line which the patient consented to. Due to the fact that I am worried that this patient is a high risk of elopement,. Central line was placed as above. I did discuss the case with both pharmacy as well as psychiatry. A 302 petitioning statement was filled out and placed on the chart. The patient was started on broad-spectrum antibiotics as well as antifungal medicines. The decision was made with the patient to place the central line in her neck. Her hemoglobin was noted to be 10 in her white blood cell count is 7. She does not have an elevation in her kidney function. Impression & Plan , Fungemia, Bacteremia, Bilateral edema of lower extremity, Cellulitis Critical Care Time Critical Care Time: Yes Total Critical Care Time: 90 I have personally spent 90 minutes of critical care time in the direct management of this patient. This includes bedside care, interpretation of diagnostic studies, and testing, discussion with consultants, patient, and family members, and other required patient management activities. This 90 minutes is in excess of all separately billable procedures. Discharge Plan Visit Data *Final* Discharge Date/Time: 03/20/19 02:21 Chief Complaint: Infection Stated Complaint: BLOOD INFECTION ED Provider: Ashok Banks Discharge Problem: , Fungemia, Bacteremia, Bilateral edema of lower extremity, Cellulitis Patient Disposition: Admitted As Inpatient Condition: Serious Discharge Instructions Interventions: ED Discharge Assessment Last Done: 03/20/19 02:21 The scribe's documentation has been prepared under my direction and personally reviewed by me in its entirety. I confirm that the note above accurately reflects all work, treatment, procedures, and medical decision making performed by me.
[2019-03-20 01:01] LABS: Creatine Kinase MB 11.9 ng/ml (0.5-3.6); Troponin I < 0.015 ng/ml (0-0.045)
[2019-03-20] MEDS ORDERED: XYLOCAINE 1%/SOD BICARB 20 ML VIAL ONE (01:39)
--- NOTE | 2019-03-20 02:04 | Emergency Department Note ---
ED Visit Note I was asked to perform repair of this patient's laceration. Patient states she was using a knife to cut a tire today because she was angry. She states she accidentally slipped and cut her hand. Examination reveals a 3 cm laceration to the lateral aspect of the right hand. There is no active bleeding from the wound. Subcutaneous tissue was seen in the base of the wound, no deep structures noted. No foreign bodies seen in the wound. Verbal consent was obtained to perform the procedure. Using sterile technique the wound was cleaned with Betadine. The area was sterilely draped. 4 ml of 1% buffered lidocaine was used to anesthetize the hand laceration. Once the patient was anesthetized, the wound was copiously irrigated under pressure with sterile saline. The wound was explored and there were no deep structures injured such as tendons, bone, or significant blood vessels. The laceration was repaired using 4 simple interrupted 5-0 nylon sutures with the wound edges being well approximated. The patient tolerated the procedure well. Hemostasis was achieved.
[2019-03-20] MEDS ORDERED: [UNRECOGNIZED DRUG - OTHER] IV SCH (02:30)
[2019-03-20] MEDS ORDERED: ACETAMINOPHEN 325 MG TAB PO PRN (02:40)
[2019-03-20] MEDS ORDERED: LEVOTHYROXINE SODIUM 150 MCG TABLET PO SCH (06:30)
--- NOTE | 2019-03-20 06:49 | XRay Report ---
XR chest 1V portable CLINICAL HISTORY: Central line placement COMPARISON STUDY: Chest radiograph March 19, 2019. FINDINGS: Interval central line placement as noted. The catheter is coiled over the right mediastinum . Exact positioning is difficult to determine on this exam but the catheter tip may be coiled within the SVC or within the azygos vein. There is no pneumothorax or pleural effusion. There is possible mi ld right lower lung airspace opacity. Cardiac size is normal. Mediastinal contours are normal. IMPRESSION: 1. Interval placement of a central line with catheter coiled, projecting over the right mediastinum. Exact positioning difficult to determine but catheter tip may be coiled within the SVC or the azygos vein. Repositioning might be considered. No pneumothorax. 2. Possible mild right lower lung airspace opacity. Electronically signed by: Mk Knox M.D. 03/20/2019 6:48 AM
--- NOTE | 2019-03-20 07:05 | Ultrasound Report ---
ULTRASOUND BILATERAL LOWER EXTREMITY VENOUS CLINICAL HISTORY: Lower extremity swelling. . COMPARISON STUDY: Bilateral lower extremity venous ultrasound dated 03/14/2019. TECHNIQUE: Real-time, grayscale, and color Doppler sonography of the deep veins of the right and left lower extremity was performed from the inguinal crease to the calf. Compression and augmentation wer e utilized. FINDINGS: There is no sonographic evidence of deep venous thrombosis identified in the right or left lower extremity. The common femoral, superficial femoral, and popliteal veins are patent and normally compressible bilaterally. The greater saphenous vein and the profunda femoris vein at the junction w ith the common femoral vein are clear in both legs. The visualized calf veins are patent bilaterally. IMPRESSION: There is no sonographic evidence of deep venous thrombosis identified in the right or lef t lower extremity. Electronically signed by: Kyler Tinoco M.D. 03/20/2019 7:04 AM
[2019-03-20] MEDS ORDERED: BUPRENORPHINE/NALOXONE 8/2 MG TAB SL STA (08:17)
[2019-03-20] MEDS ORDERED: BUPRENORPHINE HCL 8 MG SUBL ONE ×2 (08:21→08:31)
[2019-03-20] MEDS ORDERED: HALOPERIDOL LACTATE 5 MG/ML 1 ML VIAL IM STA (08:23)
[2019-03-20] MEDS ORDERED: ONDANSETRON 4 MG TAB PO PRN (08:37)
[2019-03-20] MEDS ORDERED: ONDANSETRON 4 MG OD TAB ONE (08:42)
[2019-03-20] MEDS ORDERED: BUPRENORPHINE HCL 8 MG SUBL SL SCH (09:00)
[2019-03-20] MEDS ORDERED: ENOXAPARIN INJ 40 MG/0.4 ML SYR SQ SCH (09:00)
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
[2019-03-20] MEDS ORDERED: LORazepam 2 MG/4 ML VIAL IV PRN (09:09)
--- NOTE | 2019-03-20 10:41 | Infectious Disease Consult ---
Date of Consultation March 20, 2019 Assessment & Plan (1) Fungemia: pt has refused care, full exam, refuses discussion regarding + blood cultures. She states she will be leaving hospital AMA. If patient agreeable to hospital stay, will need UDS, echo to r/o vegetations, repeat cultures pending. would continue current antimicrobials pending additional culture data. (2) Cellulitis: (3) : (4) Hepatitis: (5) Gram negative sepsis: History of Present Illness Attending Physician: Jaskaran Qiu MD pt admitted to hospital due to + blood culture for gnr and yeast. She was initially in ER on 03/13 for foot swelling and blister - culture done and grew MRSA, she was initially on keflex but then changed to clinda when MRSA +. She had blood cultures done as part of her workup in ER, became + and she was notified. She is , out of 1st trimester, she was started on Aztreonam and Ampho in ER. She remains on po clinda. She had a central line placed in ER as well. wbc 8.1, creat 0.6, 03/13 UA negative, HCV ab + - unclear if previously known status, HIV status unknown. CXR negative, foot x ray no osteo. Afebrile. No known h/o IVDA, no UDS done. Upon entering patients room this morning, she w as exiting bathroon, pulling at central line stating, " I am leaving this hospital now, get this IV out of me" I attempted to introduce myself and discuss + cultures but pt informed that she will leaving AMA and requested that I leave her room. She refused exam, discussion regarding care. Has not had abx/antifungal this am per nursing as she is refusing all care. Allergies Allergy/AdvReac Type Severity Reaction Status Date / Time No Known Allergies Allergy Unverified 03/19/19 23:37 Home Medications Home Medications Medication Instructions Recorded Confirmed Type furosemide 20 mg tablet 20 mg PO DAILY #90 tab 01/16/19 03/19/19 Rx buprenorphine HCl 8 mg SUBLINGUAL DIRECTED 03/14/19 03/19/19 History clindamycin HCl 450 mg PO TID 7 Days #63 cap 03/14/19 03/19/19 Rx hydroxyprogesterone caproate 250 mg IM WK 03/14/19 03/19/19 History levothyroxine 150 mcg tablet 150 mcg PO DAILY #60 tab 03/18/19 03/19/19 History Patient History Medical History Ollie's thyroiditis (Acute) Hypothyroidism (acquired) (Acute) Encounter for routine gynecological examination with Papanicolaou smear of cervix Surgical History Previous section Family History Brother Anxiety Family history of depression Drug abuse Gall bladder disease Grandmother No problems noted. Grandmother (Paternal) Diabetes Hyperthyroidism Grandmother (Paternal) Myocardial infarction Grandfather (Maternal) Myocardial infarction Social History Preferred Language: Occitan Communication Ability: Impaired Communication Ability Comment: pt appears intoxicated/medicated. slurring words,cant keep eyes open,swayin Pipe Chipper Required: No Beliefs That Will Affect Care: None marital status: Single Current Living Situation: Homeless current occupational status: employed current occupation: [employer] Other Information That Helps Us Care for You: No Feels Safe at Home: Yes Smoking Status: Current every day smoker Tobacco Type: cigarettes ; Cigarettes Per Day: 1 pack ; Tobacco Cessation Education Requested by Patient: No Hx Alcohol Use: No Hx Substance Use: Yes substance use type: former substance user and IV drugs Last Used Substance: Unknown Childhood Exposure to Second-Hand Smoke: No Dental Care, Regularly: Yes Physical Activity Frequency: 1-2 Times per Week Review of Systems Review of Systems: Unobtainable due to mental health condition Physical Exam Constitutional: WD/WN, vitals as above Neck: right central line with intact dressing, she is pulling on line trying to remove Respiratory: refused exam Cardiovascular: refused exam Gastrointestinal (Abdomen): gravid Musculoskeletal: Head/Neck/Chest: normocephalic and head atraumatic Skin: no rashes, warm and dry Psychiatric: A+Ox3, euthymic affect Motor Behavior: steady gait and station Affect: + angry affect Results & Data Vital Signs (Past 12 Hours) Vital Signs Temp Pulse Pulse Resp BP BP Pulse Ox 03/20/19 08:07 36.4 C L 64 19 112/68 96 03/20/19 02:30 36.5 C 70 14 94/48 L 98 03/20/19 02:21 76 16 108/60 99 03/20/19 01:55 76 16 107/57 L 98 03/20/19 01:27 96 03/20/19 00:00 89 16 96/75 L 95 PG Care Time/CCT Total # of Minutes Spent Total Time Spent with Patient: Total time spent is greater than 50% in coordination of care (as documented) at patient's floor/unit and/or counseling patient: (1) Cellulitis Laterality: right Site of cellulitis: extremity Site of cellulitis of extremity: lower extremity Qualified Code(s): L03.115 - Cellulitis of right lower limb (2) Weeks of gestation: 28 weeks Qualified Code(s): Z3A.28 - 28 weeks gestation of
[2019-03-20] MEDS: CLINDAMYCIN HCL 150 MG CAP PO SCH ×2 (11:21→15:52)
[2019-03-20] MEDS: AZTREONAM 2,000 MG in DEXTROSE 5% 100 ML IV SCH ×2 (11:22→18:37)
--- NOTE | 2019-03-20 15:52 | Discharge Summary ---
Date of Service March 20, 2019 Admission HPI Per Admitting Provider Terrance is a 28 year old female who is currently 26 weeks , with a past medical history including an MRSA infection of the foot, IV drug abuse, psychiatric disorders and hypothyroidism who presented to the emergency department due to positive blood cultures. Her history is largely supplied by her mother, who states that she had noticed a right foot wound last week. She was seen at [facility] several times for this. She was initially treated with Keflex for a presumed cellulitis. Due to the fact that this was not improving, she presented to [facility] on 03/13 for the same. She was placed on clindamycin to cover a MRSA infection. Her wound culture did grow MRSA. Blood cultures were drawn at this time, and 1/2 grew dulce maria and gram negative bacilli. She was subsequently called back to the hospital for IV treatment. Terrance denies fever, chills, nausea, vomiting, abdominal pain, cough, or urinary symptoms. She states that other than her b/l legs hurting, she has been well. She does endorse a right palmar laceration that occurred earlier today. She states she accidentally cut herself with a knife, and then bandaged the area. Terrance has a history of IV drug abuse, but states that she has not used any drugs recently. Her mother notes she recently had a negative drug screen. Terrance states she is currently on buprenorphine. Terrance's mother expresses concerns regarding her mental health. She states she was on several medications for her mood, however these were all discontinued when she became , and her mood has subsequently become a problem. She reports Terrance is not sleeping at nights, and has been exhibiting mood swings. PMHx: Hypothyroidism, mood disorder, history of IV drug abuse PSHx: Prior section Meds: Aspirin, clindamycin, Lasix, hydroxyprogesterone caproate, levothyroxine Allergies: NKDA SHx: Smokes <1/2 pack per day. No alcohol or recent recreational drug use. Discharge Data Allergies Allergy/AdvReac Type Severity Reaction Status Date / Time No Known Allergies Allergy Unverified 03/19/19 23:37 Consultations 03/19/19 23:31 ED Decision to Admit Stat 03/20/19 02:40 Consult Infectious Diseases Routine 03/20/19 08:31 Consult Psychiatry Routine Ordered Studies 03/20/19 venous doppler LE Urgent Discharge Plan Discharge Items Reason For Visit: BACTEREMIA, FUNGEMIA Medications and DC Order Prescriptions: No Action furosemide 20 mg tablet 20 mg PO DAILY Qty: 90 RF: 1 levothyroxine 150 mcg tablet 150 mcg PO DAILY Qty: 60 RF: 0 buprenorphine HCl 8 mg Tablet, Sublingual 8 mg SUBLINGUAL DIRECTED RF: 0 hydroxyprogesterone caproate 250 mg/mL Oil 250 mg IM WK RF: 0 clindamycin HCl 150 mg capsule 450 mg PO TID 7 Days Qty: 63 RF: 0 Admission Data Admit Date/Time: 03/20/19 01:48 Attending Provider: Jaskaran Qiu Admit Provider: Misbah Espinoza Primary Care Provider: Janice Fields Other Providers: Dragan Cruz ; Tabitha Ramírez ; Jes Batista ; Zenobia Tony
--- NOTE | 2019-03-20 16:49 | Psychiatric Consultation ---
Date of Consultation March 20, 2019 Impression / Recommendations Impression I agree with the primary attending that the patient currently lacks capacity to refuse the recommendations for transfer to a Medical Center with access to maternal medicine. Although she is able to indicate her preferred treatment (transfer to [facility] or [facility]), these hospitals do not have the ability to provide the services that she needs, and are not appropriate options. She is unable to appreciate the situation and its consequences, or reason about treatment options. Agree with the point in an alternate decision maker. Her agitation may be simply a function of her personality, but should also rule out surreptitious drug use, as per reports she became sedated and calm later in the afternoon. Her current symptoms are not consistent with a manic or depress elina episode, but could indicate an underlying personality pathology. Recommend psychiatric evaluation at the tertiary care facility for ongoing treatment, and coordination of care with her outpatient clinicians including therapist and Suboxone provider in [place]. Psych History Chief Complaint "I'm great". History of Present Illness 28 year old female who is currently 26 weeks , has a history of MRSA infection of the foot, IV drug abuse, hypothyroidism, depression, anxiety, and bipolar disorder per her report, who presented to the emergency department due to positive blood cultures, and was admitted to the hospitalist service. Her history was largely supplied by her mother, who noticed a right foot wound last week. She was seen at [place] urgent care several times for this. She was initially treated with Keflex for a presumed cellulitis, but when it did not improve, she presented to the ER on 03/13, where she was started on on clindamycin. Blood cultures were drawn, and 1/2 grew dulce maria and gram negative bacilli, so she was called back to the hospital for IV treatment. She presented to the ER late on 03/19/2019, and was admitted overnight. A drug screen was ordered on admission, but she did not provide a urine sample. She reports being prescribed Subutex twice daily for heroin addiction, and was angry when her home supply had been sent home with her mother, stating she could not take the type of Subutex the hospital caries. She became further upset after her boyfriend, who was visiting her, was arrested by police for some sort of probation violation. She has been increasingly agitated, ultimately refusing to see her primary treatment team, and demanding to be transferred to another hospital. She was referred to [facility] and accepted there for treatment, but refused to go. Psychiatry was consulted for a second opinion on capacity to refuse treatment to an appropriate tertiary care center. She is artery been seen by the primary attending who is of the opinion that she lacks capacity to refuse the recommended treatment. Case was reviewed in the record, with the psychiatric liaison nurse, and with the primary attending. On my assessment, the patient was seen in her room, where she was agitated and pacing around throughout the assessment. She is angrily demanding to go to [facility], stating she wants to be transferred because "I don't like this facility," stating the doctors here are refusing to transfer her because they don't like her. Reviewed the medical recommendations to go to a tertiary care center with access to maternal medicine services given her and complications, which she insists is not the case, and cites various reasons why she does not trust doctors, including that she has been told different things by different physicians over the course of treatment for her infection, that her HIPPA form states her ex- boyfriend should not receive information about her hospitalization, and that her current boyfriend was arrested while she was here. She cannot explain how these things are connected or why they would lead to her refusal of the recommended treatment. She cannot explain the risks of refusing the recommended treatment. She is unwilling to participate in care here, multiple times stating that she is just going to leave, and will take herself to another hospital. She states that her mood was "fine," until the events of this morning, and states that her last episode of mood symptoms was in January. She says she has been off medications first several months due to her , stating "I can't take meds while I am ." She denies suicidal thoughts, homicidal thoughts, hallucinations, and paranoia. She will not tell me the name of her therapist, but states that she sees someone in [place] who is part of her Suboxone program. She reports a history of IV heroin use, but says last use was years ago, and says "get fucked" when asked if she will provide a urine sample for the drug screen that was ordered on admission. Allergies Allergy/AdvReac Type Severity Reaction Status Date / Time No Known Allergies Allergy Unverified 03/19/19 23:37 Home Medications Home Medications Medication Instructions Recorded Confirmed Type furosemide 20 mg tablet 20 mg PO DAILY #90 tab 01/16/19 03/19/19 Rx buprenorphine HCl 8 mg SUBLINGUAL DIRECTED 03/14/19 03/19/19 History clindamycin HCl 450 mg PO TID 7 Days #63 cap 03/14/19 03/19/19 Rx hydroxyprogesterone caproate 250 mg IM WK 03/14/19 03/19/19 History levothyroxine 150 mcg tablet 150 mcg PO DAILY #60 tab 03/18/19 03/19/19 History Personal History Beliefs That Will Affect Care: None Patient History Medical History Ollie's thyroiditis (Acute) Hypothyroidism (acquired) (Acute) Encounter for routine gynecological examination with Papanicolaou smear of cervix Surgical History Previous section Family History Brother Anxiety Family history of depression Drug abuse Gall bladder disease Grandmother No problems noted. Grandmother (Paternal) Diabetes Hyperthyroidism Grandmother (Paternal) Myocardial infarction Grandfather (Maternal) Myocardial infarction Social History Preferred Language: Mongolian Communication Ability: Impaired Communication Ability Comment: pt appears intoxicated/medicated. slurring words,cant keep eyes open,swayin [employer] Required: No Beliefs That Will Affect Care: None marital status: Single Current Living Situation: Homeless current occupational status: employed current occupation: [employer] Other Information That Helps Us Care for You: No Feels Safe at Home: Yes Smoking Status: Current every day smoker Tobacco Type: cigarettes ; Cigarettes Per Day: 1 pack ; Tobacco Cessation Education Requested by Patient: No Hx Alcohol Use: No Hx Substance Use: Yes substance use type: former substance user and IV drugs Last Used Substance: Unknown Childhood Exposure to Second-Hand Smoke: No Dental Care, Regularly: Yes Physical Activity Frequency: 1-2 Times per Week Physical Exam Psychiatric: Orientation: alert; + uncooperative Agitated, unkempt, malodorous. Eye Contact: + fair eye contact Motor Behavior: + psychomotor agitation Speech is excessive, loud, with frequent expletives. Affect: + irritable affect and + angry affect Mood: + angry mood Thought Process: + tangential thought process Derails at times Thought Content: reality based without delusions Suicidal Thoughts: denies suicidal thoughts Homicidal Thoughts: denies homicidal thoughts Hallucinations: no auditory hallucinations and no visual hallucinations Cognition: language grossly intact; + attention not intact Insight: + impaired insight Judgement: + impaired judgement Vital Signs (Past 24 Hours): Last Vital Signs Temp 36.3 C L 03/20/19 15:37 Pulse 63 03/20/19 15:37 Resp 18 03/20/19 15:37 BP 96/61 L 03/20/19 15:37 Pulse Ox 96 03/20/19 15:37 Review of Systems Other (Unobtainable due to agitation and uncooperative attitude) Results & Data Medications Administered Acetaminophen (Tylenol) 650 mg PO Q4H PRN PRN Reason: pain/fever Stop: 04/19/19 02:39 Last Admin: 03/20/19 08:43 Dose: 650 mg Documented by: [id number] Buprenorphine HCl (Subutex) 8 mg SL BID [facility] Stop: 04/19/19 08:59 Last Admin: 03/20/19 08:55 Dose: Not Given Documented by: [id number] Clindamycin HCl (Cleocin) 450 mg PO TID [facility] Stop: 03/30/19 08:59 Last Admin: 03/20/19 15:52 Dose: 450 mg Documented by: [id number] Admin: 03/20/19 11:21 Dose: Not Given Documented by: [id number] Enoxaparin Sodium (Lovenox) 40 mg SQ QAM [facility] Stop: 04/19/19 08:59 Last Admin: 03/20/19 08:55 Dose: Not Given Documented by: [id number] Aztreonam 2,000 mg/ Dextrose 110 mls @ 100 mls/hr IV Q8H [facility] Stop: 04/03/19 09:59 Last Admin: 03/20/19 11:22 Dose: Not Given Documented by: [id number] Levothyroxine Sodium (Synthroid) 150 mcg PO DAILYBB [facility] Stop: 04/19/19 06:29 Last Admin: 03/20/19 05:25 Dose: 150 mcg Documented by: [id number]
[2019-03-20 17:28] LABS: Basophils # (auto) 0.01 K/uL (0-0.2); Basophils % (auto) 0.1 %; Eosinophils # (auto) 0.14 K/uL (0-0.5); Hematocrit (blood only) 29.5 % (37-47); Hemoglobin 10.1 g/dL (12.0-16.0); Immature Granulocytes # (auto) 0.02 K/uL (0.00-0.02); Immature Granulocytes % (auto) 0.3 %; Lymphocytes # (auto) 1.45 K/uL (1.2-3.4); Lymphocytes % (auto) 20.4 %; Mean Corpuscular Hgb Conc 34.2 g/dL (32-36); Mean Corpuscular Volume 91.6 fL (80-100); Mean Platelet Volume 10.3 fL (7.4-10.4); Monocytes # (auto) 0.54 K/uL (0.11-0.59); Monocytes % (auto) 7.6 %; Neutrophils # (auto) 4.95 K/uL (1.4-6.5); Neutrophils % (auto) 69.6 %; Platelet Count 194 K/uL (130-400); RDW Coefficient of Variation 13.8 % (11.5-14.5); RDW Standard Deviation 45.4 fL (36.4-46.3); Red Blood Count 3.22 M/uL (4.2-5.4); White Blood Count 7.11 K/uL (4.8-10.8)
[2019-03-20 17:44] LABS: Calcium 8.5 mg/dl (8.5-10.1); Creatinine Clr Calc Pharmacy 128.7 ml/min; Est GFR (African American) 127.8; Est GFR (Non-African American) 110.3; Potassium 3.5 mmol/L (3.5-5.1)
[2019-03-21] MEDS ORDERED: AMPHOTERICIN B IV SCH (04:00)
[2019-03-21] MEDS ORDERED: DEXTROSE 5% IV SCH (04:00)
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
--- NOTE | 2019-03-26 09:00 | Coding Query ---
SEPSIS NOTE: BACTEREMIA AND FUNGEMIA ARE DOCUMENTED ALL THROUGH AND ID CONSULT DOCUMENTS SEPSIS, PLEASE CLARIFY. To promote full compliance with coding requirements relating to patient care, physician participation is requested in all cases of flatwork washer uncertainty. Please assist us with the question(s) below: In responding to this query, please exercise your independent professional judgement. The fact that a question is asked does not imply that any particular answer is desired or expected. We appreciate your clarification on this issue. Throughout the medical record, you have clearly documented a localized infection and your patient has clinical evidence of a generalized sepsis or severe sepsis. The term urosepsis is a nonspecific entity and is coded as an UTI. If the patient has sepsis, severe sepsis, from an urinary source or some other source, please clarify in your response below. The medical record reflects the following clinical findings: (With dates as appropriate) (Body temperature of >38.3 C(101 F) or <36 C(96.8F), pulse >90/minute, respirations >20/minute, WBC count >12,000 or <4,000, altered mental status, significant edema or positive fluid balance, hyperglycemia without diabetes, hypotension, metabolic acidosis (elev. lactate level, anion gap or reduced blood pH), shock, positive blood culture (enter organism) ____ (X)Bacteremia (Nonspecific laboratory finding of bacteria in the blood) and fungemia Specify Organism (x) Present on Admission () Not present on admission () Unable to clinically determine () Septicemia (Systemic disease associated with the presence of pathogenic microorganisms in the blood): Specify Organism () Present on Admission () Not present on admission () Unable to clinically determine () Sepsis Specify Organism Specify Associated Condition/Diagnosis () Present on Admission () Not present on admission () Unable to clinically determine () Severe Sepsis (Sepsis associated with acute organ dysfunction) Specify Organism Specify Associated Condition/Diagnosis () Present on Admission () Not present on admission () Unable to clinically determine () Septic Shock (Severe sepsis with acute circulatory failure, unexplained by other causes) () Present on Admission () Not present on admission () Unable to clinically determine () Other, patient has: MTDD
== END 2019-03-20 20:29 | disposition short-term general hospital (02) | DRG 832 ==
LOC: ED 21:11 → SUATTDRO 03-20 01:48 → 2W 03-20 01:48